=== PATIENT | male | born 1975 | race American Indian/Alaskan Native ===

== ENCOUNTER 2020-02-25 18:56 | Emergency (ER) | payer OTHER ==
[2020-02-25 19:04] VITALS: BP 143/102
[2020-02-25] MEDS ORDERED: LIDOCAINE (1%) 10 MG/1 ML VIAL 20 ML MDV INFILTRATI ONE (19:09)
[2020-02-25] MEDS ORDERED: NEOMY 3.5 MG/BACIT 400 UNITS/POLY B 5000 UNITS/GM OINT PACKET TP ONE (19:09)
[2020-02-25] MEDS ORDERED: DIPHtheria,PERTUSSIS(ACELL),TETANUS VACCINE/PF 0.5 ML VIAL IM ONE ×2 (19:09→22:36)
[2020-02-25] MEDS ORDERED: ACETAMINOPHEN 325 MG TAB PO ONE (19:09)
[2020-02-25] MEDS ORDERED: TETANUS,DIPHTHERIA TOXOID ADULT 0.5 ML INJ IM ONE (19:09)
--- NOTE | 2020-02-25 19:10 | Event Note ---
ED Screening Note ED Screening Note: lac to arm needs tdap bleeding controlled n/v intact This initial assessment/diagnostic orders/clinical plan/treatment(s) is/are subject to change based on patients health status, clinical progression and re- assessment by fellow clinical providers in the ED. Further treatment and workup at subsequent clinical providers discretion. Patient/guardian urged not to elope from the ED as their condition may be serious if not clinically assessed and managed. Initial orders include: lac repair
[2020-02-25] MEDS ORDERED: HYDROcodone/ACETAMINOPHEN 5-325 MG TAB PO ONE (22:36)
[2020-02-25] MEDS ORDERED: LIDOCAINE (1%) 10 MG/1 ML VIAL 20 ML MDV ONE (22:41)
--- NOTE | 2020-02-25 23:42 | Emergency Department Report ---
- General Chief Complaint: Wound/Laceration Stated Complaint: ARM LAC Time Seen by Provider: 02/25/20 19:09 Source: patient Mode of arrival: Ambulatory Limitations: No Limitations - History of Present Illness Initial Comments: Patient is a 44-year-old male presents emergency room with complaints of a laceration to the left forearm that occurred just prior to arrival. Patient sta carmine that he was at work and he cut himself on a box. He did not notice any glass or metal and is not sure what cut him. He states initially there was bleeding but he placed a gauze dressing and it resolved. He denies any difficulty moving the arm. He states he only has pain around the laceration. No numbness or weakness. He states his last tetanus immunization was in 2008. Past medical history of borderline hypertension and asthma. Allergy to bee stings. - Related Data Previous Rx's Medication Instructions Recorded Last Taken Type Azithromycin [Zithromax] 250 mg PO DAILY #1 pkg 09/05/15 Unknown Rx Fluticasone [Flonase] 2 spray NS QDAY #1 bottle 09/05/15 Unknown Rx Loratadine (Nf) [Claritin] 10 mg PO DAILY #30 tablet 09/05/15 Unknown Rx Prednisone [predniSONE 10 mg 10 mg PO .TAPER #1 tab.ds.pk 09/05/15 Unknown Rx (6-Day Pack, 21 Tabs)] Promethazine /Codeine 5 ml PO Q6H PRN #150 udc 09/05/15 Unknown Rx [Phenergan/Codeine 6.25-10 mg/5 ml] cephALEXin [Keflex] 500 mg PO QID 7 Days #28 capsule 02/25/20 Unknown Rx Allergies Allergy/AdvReac Type Severity Reaction Status Date / Time bee stings Allergy Hives Uncoded 09/05/15 10:22 ED Review of Systems ROS: Stated complaint: ARM LAC Other details as noted in HPI Comment: All other systems reviewed and negative ED Past Medical Hx - Past Medical History Previous Medical History?: Yes Hx Asthma: Yes - Surgical History Past Surgical History?: Yes Additional Surgical History: repair of dislocated l) hip - Social History Smoking Status: Never Smoker Substance Use Type: None - Medications Home Medications: Home Medications Medication Instructions Recorded Confirmed Last Taken Type Azithromycin [Zithromax] 250 mg PO DAILY #1 pkg 09/05/15 Unknown Rx Fluticasone [Flonase] 2 spray NS QDAY #1 bottle 09/05/15 Unknown Rx Loratadine (Nf) [Claritin] 10 mg PO DAILY #30 tablet 09/05/15 Unknown Rx Prednisone [predniSONE 10 mg 10 mg PO .TAPER #1 tab.ds.pk 09/05/15 Unknown Rx (6-Day Pack, 21 Tabs)] Promethazine /Codeine 5 ml PO Q6H PRN #150 udc 09/05/15 Unknown Rx [Phenergan/Codeine 6.25-10 mg/5 ml] cephALEXin [Keflex] 500 mg PO QID 7 Days #28 capsule 02/25/20 Unknown Rx ED Physical Exam - General Limitations: No Limitations General appearance: alert, in no apparent distress - Head Head exam: Present: atraumatic, normocephalic - Eye Eye exam: Present: normal appearance - ENT ENT exam: Present: mucous membranes moist - Extremities Exam Extremities exam: Present: other (7 cm laceration present to the left forearm, there is some subcutaneous fat involvement, no foreign body, no muscle or tendon involvement, no bony ttp, FROM of the LUE, neurovascularly intact) - Neurological Exam Neurological exam: Present: alert, oriented X3 - Psychiatric Psychiatric exam: Present: normal affect, normal mood - Skin Skin exam: Present: warm, dry ED Course Vital Signs 02/25/20 02/26/20 19:03 00:05 Temperature 98.3 F Pulse Rate 100 H 58 L Respiratory 20 17 Rate Blood Pressure 143/102 [Right] O2 Sat by Pulse 98 100 Oximetry - Laceration /Wound Repair Left Arm Wound Location: upper extremity (left forearm) Wound Length (cm): 7 Wound's Depth, Shape: superficial Wound Explored: clean Irrigated w/ Saline (ccs): 500 Betadine Prep?: Yes Anesthesia: 1% Lidocaine Volume Anesthetic (ccs): 10 Wound Debrided: moderate Wound Repaired With: sutures Suture Size/Type: 4:0, proline Number of Sutures: 13 Layer Closure?: No Sterile Dressing Applied?: Yes Progress: Wound irrigated with saline and thoroughly scrubbed with Betadine, no muscle or tendon involvement, no foreign body, 10 cc of 1% lidocaine without epinephrine used as anesthetic, 4-0 Prolene used for skin closure, 13 sutures placed with good skin approximation, patient tolerated well, no complications, bleeding controlled, sterile dressing applied ED Medical Decision Making - Medical Decision Making Patient is a 44-year-old male presents emergency room with complaints of a laceration to the left forearm that occurred just prior to arrival. Patient states that he was at work and he cut himself on a box. He did not notice any glass or metal and is not sure what cut him. He states initially there was bleeding but he placed a gauze dressing and it resolved. He denies any difficulty moving the arm. He states he only has pain around the laceration. No numbness or weakness. He states his last tetanus immunization was in 2008. Past medical history of borderline hypertension and asthma. Allergy to bee stings. vss. on exam: 7 cm laceration present to the left forearm, there is some subcutaneous fat involvement, no foreign body, no muscle or tendon involvement, no bony ttp, FROM of the LUE, neurovascularly intact. Laceration repaired per procedure note. pt given tetanus immunization and pain medication as pt did not drive. Patient given prescription for Keflex. Advised patient Please keep area clean, dry, covered. May wash with soap and water twice a day and immediately dry. No hot tub, no pool, no soaking in water. Please take medication as prescribed. Sutures need to be removed in 10 to 14 days, may have this done at a clinic or return to the emergency room. Return to emergency room immediately for any new or worsening symptoms or any signs of infection. Critical care attestation.: If time is entered above; I have spent that time in minutes in the direct care of this critically ill patient, excluding procedure time. ED Disposition Clinical Impression: Laceration of left forearm Qualifiers: Encounter type: initial encounter Qualified Code(s): S51.812A - Laceration without foreign body of left forearm, initial encounter Disposition: DC-01 TO HOME OR SELFCARE Is pt being admited?: No Does the pt Need Aspirin: No Condition: Stable Instructions: Suture Care (ED), Laceration (ED) Additional Instructions: Please keep area clean, dry, covered. May wash with soap and water twice a day and immediately dry. No hot tub, no pool, no soaking in water. Please take medication as prescribed. Sutures need to be removed in 10 to 14 days, may have this done at a clinic or return to the emergency room. Return to emergency room immediately for any new or worsening symptoms or any signs of infection. [employer] Address: [address] [place] [address], [place] [address] Prescriptions: cephALEXin [Keflex] 500 mg PO QID 7 Days #28 capsule Referrals: PRIMARY CARE,MD [Primary Care Provider] - 2-3 Days Time of Disposition: 23:42 Print Language: SETSWANA
== END 2020-02-26 00:05 | disposition home or self-care (01) ==
LOC: ED 18:56
DX: S51.812A Laceration without foreign body of left forearm, initial encounter (principal); J45.909 Unspecified asthma, uncomplicated; Z98.890 Other specified postprocedural states; Z79.2 Long term (current) use of antibiotics; Z79.899 Other long term (current) drug therapy; Z91.030 Bee allergy status; W26.8XXA Contact with other sharp object(s), not elsewhere classified, initial encounter; Y93.89 Activity, other specified; Y92.89 Other specified places as the place of occurrence of the external cause; Y99.0 Civilian activity done for income or pay
CPT/HCPCS: 90471; 90472; 90714; 90715; 99282

== ENCOUNTER 2020-03-10 14:02 | Emergency (ER) | payer OTHER ==
[2020-03-10 14:19] VITALS: BP 135/97
--- NOTE | 2020-03-10 15:15 | Emergency Department Report ---
ED General Adult HPI - General Chief complaint: Laceration/Recheck/Suture Stated complaint: REMOVE ARM STITCHES Time Seen by Provider: 03/10/20 15:10 Source: patient Mode of arrival: Ambulatory Limitations: No Limitations - History of Present Illness Initial comments: 44-year-old -[place] male patient presents for suture removal today. Sutures were placed here in the ED on 02/25/2020. He denies any pain, drainage, redness, swelling, or fever/chills/sweats. Patient states he did complete the prescribed antibiotics. He denies any complaints or concerns. - Related Data Previous Rx's Medication Instructions Recorded Last Taken Type Azithromycin [Zithromax] 250 mg PO DAILY #1 pkg 09/05/15 Unknown Rx Fluticasone [Flonase] 2 spray NS QDAY #1 bottle 09/05/15 Unknown Rx Loratadine (Nf) [Claritin] 10 mg PO DAILY #30 tablet 09/05/15 Unknown Rx Prednisone [predniSONE 10 mg 10 mg PO .TAPER #1 tab.ds.pk 09/05/15 Unknown Rx (6-Day Pack, 21 Tabs)] Promethazine /Codeine 5 ml PO Q6H PRN #150 udc 09/05/15 Unknown Rx [Phenergan/Codeine 6.25-10 mg/5 ml] cephALEXin [Keflex] 500 mg PO QID 7 Days #28 capsule 02/25/20 Unknown Rx Allergies Allergy/AdvReac Type Severity Reaction Status Date / Time bee stings Allergy Hives Uncoded 09/05/15 10:22 ED Review of Systems ROS: Stated complaint: REMOVE ARM STITCHES Other details as noted in HPI Constitutional: denies: chills, fever Skin: as per HPI ED Past Medical Hx - Past Medical History Hx Asthma: Yes - Surgical History Past Surgical History?: No Additional Surgical History: repair of dislocated l) hip - Social History Smoking Status: Never Smoker Substance Use Type: None - Medications Home Medications: Home Medications Medication Instructions Recorded Confirmed Last Taken Type Azithromycin [Zithromax] 250 mg PO DAILY #1 pkg 09/05/15 Unknown Rx Fluticasone [Flonase] 2 spray NS QDAY #1 bottle 09/05/15 Unknown Rx Loratadine (Nf) [Claritin] 10 mg PO DAILY #30 tablet 09/05/15 Unknown Rx Prednisone [predniSONE 10 mg 10 mg PO .TAPER #1 tab.ds.pk 09/05/15 Unknown Rx (6-Day Pack, 21 Tabs)] Promethazine /Codeine 5 ml PO Q6H PRN #150 udc 09/05/15 Unknown Rx [Phenergan/Codeine 6.25-10 mg/5 ml] cephALEXin [Keflex] 500 mg PO QID 7 Days #28 capsule 02/25/20 Unknown Rx ED Physical Exam - General Limitations: No Limitations General appearance: alert, in no apparent distress - Head Head exam: Present: atraumatic, normocephalic - Eye Eye exam: Present: normal appearance - Respiratory Respiratory exam: Absent: respiratory distress - Cardiovascular Cardiovascular Exam: Present: regular rate - Neurological Exam Neurological exam: Present: alert, oriented X3 - Psychiatric Psychiatric exam: Present: normal affect, normal mood - Skin Skin exam: Present: warm, dry, intact, normal color, other (Healing laceration noted to left forearm with [address]; no redness, wound dehiscence, drainage, or tenderness to palpation noted). Absent: rash ED Course Vital Signs 03/10/20 14:12 Temperature 98.3 F Pulse Rate 81 Respiratory 18 Rate Blood Pressure 135/97 O2 Sat by Pulse 98 Oximetry - Procedure Description Procedures done: 13 simple sutures removed. No bleeding observed. No wound dehiscence noted. Patient tolerated procedure well. ED Medical Decision Making - Medical Decision Making Patient here for suture removal today. 13 sutures were removed without difficulty and without any immediate complications. Patient's vitals are normal, he is well-appearing, and stable for discharge home. Recommend follow- up with primary care provider as needed. Discussed signs and symptoms of infection and strict return precautions in detail with patient who verbalizes understanding. Critical care attestation.: If time is entered above; I have spent that time in minutes in the direct care of this critically ill patient, excluding procedure time. ED Disposition Clinical Impression: Visit for suture removal Disposition: - TO HOME OR SELFCARE Is pt being admited?: No Condition: Stable Instructions: Suture Removal (ED) Referrals: PRIMARY CARE, [Referring] - 3-5 Days
== END 2020-03-10 15:30 | disposition home or self-care (01) ==
LOC: ED 14:02
DX: S51.812D Laceration without foreign body of left forearm, subsequent encounter (principal); Z48.02 Encounter for removal of sutures; Z98.890 Other specified postprocedural states; Z79.2 Long term (current) use of antibiotics; Z79.899 Other long term (current) drug therapy; Z91.030 Bee allergy status; X58.XXXD Exposure to other specified factors, subsequent encounter
CPT/HCPCS: 99282